=== PATIENT | female | born 1995 | race Caucasian/White ===

== ENCOUNTER 2025-03-21 15:20 | Outpatient (CLI) | payer BC, SELFPAY ==
--- NOTE | ~2025-03-21 | XR_ITS ---
Cervical Spine: AP, lateral, oblique, open-mouth views, with neutral, flexion, and extension position ing Clinical History: Pain Findings: The normal lordotic curve is maintained. The vertebral bodies and posterior elements appea r intact. The intervertebral disc spaces are well maintained. No instability evident on flexion or e xtension. Pre-vertebral soft tissues are unremarkable. Impression: No significant abnormality is seen. Reviewed, dictated and finalized at location M. Impression: No significant abnormality is seen.
--- NOTE | ~2025-03-21 | XR_ITS ---
Lumbosacral Spine: AP, oblique, and lateral views Clinical History: Pain Findings: The normal lordotic curve is maintained. The vertebral bodies and posterior elements are i ntact. The intervertebral disc spaces are preserved. No instability on flexion or extension. There i s moderate facet arthropathy from L3 through S1. The sacroiliac joints are normally outlined. Impression: Moderate facet arthropathy at the lower lumbar spine. Reviewed, dictated and finalized at location M. Impression: Moderate facet arthropathy at the lower lumbar spine.
== END 2025-03-21 15:21 | disposition home or self-care (01) ==
DX: M47.816 Spondylosis without myelopathy or radiculopathy, lumbar region (principal); M54.2 Cervicalgia
CPT/HCPCS: 72052; 72114